=== PATIENT | female | born 1950 | race African-American/Black ===

== ENCOUNTER 2017-03-11 22:58 | Inpatient (IN) | payer MEDICARE, MEDICAID ==
[~2017-03-11] VITALS: Ht 154.9 cm; Wt 54.4 kg
[~2017-03-11 22:58] MED LIST: ASPI-785; BLOOD PRESSURE MEDS; HIGH CHOLESTEROL
[2017-03-11] MEDS ORDERED: SODIUM CHLORIDE 0.9% 1,000 ML IV ONE (23:37)
[2017-03-11] MEDS ORDERED: ONDANSETRON HCL 4MG/2ML VIAL IV STA (23:37)
[2017-03-11] MEDS ORDERED: FAMOTIDINE 20MG/2ML VIAL IV STA (23:37)
[2017-03-11] MEDS ORDERED: MORPHINE SULFATE 4 MG/ML CPJ (NOT FOR IM USE) IV STA (23:37)
[2017-03-12 00:24] LABS: INR 1.1
[2017-03-12 00:25] LABS: BASOPHILS % 0.4 % (0.0-2.0); EOSINOPHILS % 0.8 % (0.0-5.0); HEMATOCRIT. 42.2 % (36.0-48.0); HEMOGLOBIN. 13.7 g/dL (12.0-16.0); LYMPHOCYTES % 22.4 % (20.0-50.0); MEAN CORPUSCULAR HEMOGLOBIN 30.3 pg (28.0-32.0); MEAN CORPUSCULAR VOLUME 93.2 fL (81.0-99.0); MEAN PLATELET VOLUME 8.2 fl (7.4-10.4); MONOCYTES % 7.3 % (2.0-8.0); NEUTROPHILS % 69.1 % (40.0-76.0); PLATELET 287 x1000/uL (130-400); RED BLOOD CELL COUNT 4.53 mill/uL (4.2-5.4); RED CELL DISTRIBUTION WIDTH 14.3 % (11.6-14.6)
[2017-03-12 00:38] LABS: CARBON DIOXIDE 29 mEq/L (21-32); CHLORIDE 106 mEq/L (98-107)
[2017-03-12 00:39] LABS: ETHANOL BLOOD < 10 mg/dL; TROPONIN I < 0.02 ng/mL (0.00-0.04)
[2017-03-12] MEDS ORDERED: SODIUM CHLORIDE 0.9% 1,000 ML IV NR (01:54)
[2017-03-12] MEDS ORDERED: METRONIDAZOLE 500 MG PREMIX 100 ML IV NR (02:00)
[2017-03-12 02:54] LABS: GLUCOSE URINE NEGATIVE (NEGATIVE); KETONES URINE NEGATIVE (NEGATIVE); LEUKOCYTE ESTERASE URINE NEGATIVE (NEGATIVE); NITRITE URINE NEGATIVE (NEGATIVE); OCCULT BLOOD URINE 1+ (NEGATIVE); PROTEIN URINE NEGATIVE (NEGATIVE); SPECIFIC GRAVITY URINE 1.027 (1.005-1.030); UROBILINOGEN URINE 0.2 E.U./dL (0.2-1.0)
[2017-03-12 03:01] LABS: CLARITY URINE CLEAR (CLEAR); COLOR URINE YELLOW (YELLOW)
[2017-03-12] MEDS: LEVOFLOXACIN 750MG PREMIX 150 ML IV NR ×2 (03:15→04:23)
[2017-03-12 03:18] LABS: *AMPHETAMINES SCREEN URINE NEGATIVE (NEGATIVE); *BARBITURATES SCREEN URINE NEGATIVE (NEGATIVE); *BENZODIAZEPINES SCREEN URINE NEGATIVE (NEGATIVE); *COCAINE SCREEN URINE NEGATIVE (NEGATIVE); CANNABINOID URINE SCREEN NEGATIVE (NEGATIVE); METHADONE URINE SCREEN NEGATIVE (NEGATIVE); OPIATES URINE SCREEN PRESUMTIVE POSITIVE (NEGATIVE); PHENCYCLIDINE URINE SCREEN NEGATIVE (NEGATIVE)
[2017-03-12 04:15] VITALS: BP 174/54
[2017-03-12 04:35] VITALS: BP 174/54
[2017-03-12] MEDS ORDERED: ALBU18HF2 PO (05:27)
[2017-03-12] MEDS ORDERED: ATOR40TA70 PO (05:27)
[2017-03-12] MEDS ORDERED: LOSA100T14 PO (05:27)
[2017-03-12] MEDS ORDERED: FLUT1AER PO (05:27)
[2017-03-12 08:00] VITALS: BP 151/48
[2017-03-12] MEDS ORDERED: HYDROCODONE/ACETAMINOPHEN 5/325MG TABLET PO PRN (10:00)
[2017-03-12] MEDS: SODIUM CHLORIDE 0.9% 1,000 ML IV SCH ×2 (10:01→22:14)
[2017-03-12 12:00] VITALS: BP 128/51
[2017-03-12] MEDS: METRONIDAZOLE 500 MG PREMIX 100 ML IV SCH ×2 (14:38→22:08)
[2017-03-12 16:00] VITALS: BP 154/57
[2017-03-12] MEDS: LOSARTAN POTASSIUM 100 MG TABLET PO SCH (18:25)
[2017-03-12 18:28] VITALS: BP 156/58
[2017-03-12 19:48] LABS: BASOPHILS % 0.3 % (0.0-2.0); EOSINOPHILS % 0.6 % (0.0-5.0); HEMATOCRIT. 36.5 % (36.0-48.0); HEMOGLOBIN. 12.2 g/dL (12.0-16.0); LYMPHOCYTES % 25.8 % (20.0-50.0); MEAN CORPUSCULAR HEMOGLOBIN 31.1 pg (28.0-32.0); MEAN CORPUSCULAR VOLUME 93.6 fL (81.0-99.0); MEAN PLATELET VOLUME 8.1 fl (7.4-10.4); MONOCYTES % 6.6 % (2.0-8.0); NEUTROPHILS % 66.7 % (40.0-76.0); PLATELET 257 x1000/uL (130-400); RED CELL DISTRIBUTION WIDTH 14.7 % (11.6-14.6)
[2017-03-12 19:54] LABS: CHLORIDE 110 mEq/L (98-107)
[2017-03-12 20:02] LABS: CARBON DIOXIDE 29 mEq/L (21-32)
[2017-03-12] MEDS ORDERED: ATORVASTATIN CALCIUM 40MG TABLET PO SCH (21:00)
[2017-03-13] MEDS: METRONIDAZOLE 500 MG PREMIX 100 ML IV SCH ×2 (07:14→12:07)
[2017-03-13] MEDS ORDERED: LEVO500T2 PO (07:38)
[2017-03-13] MEDS ORDERED: METR250T PO (07:38)
[2017-03-13 08:00] VITALS: BP 147/50
[2017-03-13] MEDS: LOSARTAN POTASSIUM 100 MG TABLET PO SCH (09:34)
[2017-03-13 09:38] LABS: BASOPHILS % 0.5 % (0.0-2.0); EOSINOPHILS % 1.4 % (0.0-5.0); HEMATOCRIT. 38.3 % (36.0-48.0); HEMOGLOBIN. 12.6 g/dL (12.0-16.0); LYMPHOCYTES % 30.1 % (20.0-50.0); MEAN CORPUSCULAR HEMOGLOBIN 30.5 pg (28.0-32.0); MEAN CORPUSCULAR VOLUME 92.9 fL (81.0-99.0); MEAN PLATELET VOLUME 8.7 fl (7.4-10.4); MONOCYTES % 6.1 % (2.0-8.0); NEUTROPHILS % 61.9 % (40.0-76.0); PLATELET 263 x1000/uL (130-400); RED BLOOD CELL COUNT 4.12 mill/uL (4.2-5.4); RED CELL DISTRIBUTION WIDTH 14.5 % (11.6-14.6)
[2017-03-13 10:17] LABS: CARBON DIOXIDE 30 mEq/L (21-32); CHLORIDE 108 mEq/L (98-107)
[2017-03-13 12:00] VITALS: BP 135/54
[2017-03-13 14:27] VITALS: BP 135/54
[2017-03-13 15:06] VITALS: BP 167/53
[2017-03-13 16:00] VITALS: BP 167/53
== END 2017-03-13 15:15 | disposition home or self-care (01) | DRG 392 ==
LOC: ER 23:14 → 6EST 03-12 02:34 → ENRESERV 03-12 03:57 → ER 03-12 04:25
PROVIDERS: ADMIT Family Medicine; ATTEND Family Medicine
DX: K57.92 Diverticulitis of intestine, part unspecified, without perforation or abscess without bleeding (principal); I10 Essential (primary) hypertension; K52.9 Noninfective gastroenteritis and colitis, unspecified; E78.00 Pure hypercholesterolemia, unspecified; E86.0 Dehydration; E78.5 Hyperlipidemia, unspecified; J45.909 Unspecified asthma, uncomplicated; Z79.82 Long term (current) use of aspirin; Z87.81 Personal history of (healed) traumatic fracture
CPT/HCPCS: 36415; 71010; 74176; 80053; 80305; 81001; 83605; 83690; 84484; 85025; 85610; 93005; 96361; 96365; 96368; 96375; 99285; G0482; J1956; J2270; J2405; J3490; J7030

== ENCOUNTER 2018-02-07 14:46 | Emergency (ER) | payer MEDICAID, MEDICARE ==
[~2018-02-07] VITALS: Ht 154.9 cm; Wt 61.0 kg
[~2018-02-07 14:46] MED LIST changes: +ALBU18HF2 PO; +ATOR40TA70 PO; +FLUT1AER PO; +LEVO500T2 PO; +LOSA100T14 PO; +METR250T PO
[2018-02-07] MEDS ORDERED: KETOROLAC 15MG/ML VIAL IM ONE (18:45)
[2018-02-07] MEDS ORDERED: LOSARTAN POTASSIUM 25 MG TABLET PO ONE (19:30)
[2018-02-07 21:00] VITALS: BP 196/68
== END 2018-02-07 21:05 | disposition home or self-care (01) ==
LOC: ER 14:46
DX: G89.29 Other chronic pain (principal); M54.5 Low back pain; M54.30 Sciatica, unspecified side; M46.1 Sacroiliitis, not elsewhere classified; M71.22 Synovial cyst of popliteal space [Baker], left knee; I10 Essential (primary) hypertension; J45.909 Unspecified asthma, uncomplicated; Z98.890 Other specified postprocedural states
CPT/HCPCS: 72100; 93971; 96372; 99284; J1885

== ENCOUNTER 2018-10-31 10:18 | Emergency (ER) | payer MEDICARE ==
[~2018-10-31] VITALS: Ht 165.1 cm; Wt 75.0 kg
[2018-10-31] MEDS ORDERED: KETOROLAC 15MG/ML VIAL IM ONE (12:00)
[2018-10-31 14:35] VITALS: BP 149/66
== END 2018-10-31 14:35 | disposition home or self-care (01) ==
LOC: ER 10:18
DX: S82.492A Other fracture of shaft of left fibula, initial encounter for closed fracture (principal); I10 Essential (primary) hypertension; J45.909 Unspecified asthma, uncomplicated; Z79.82 Long term (current) use of aspirin; V03.90XA Pedestrian on foot injured in collision with car, pick-up truck or van, unspecified whether traffic or nontraffic accident, initial encounter; Y93.89 Activity, other specified; Y92.89 Other specified places as the place of occurrence of the external cause
CPT/HCPCS: 73562; 73590; 96372; 99283; J1885; L1830